=== PATIENT | female | born 1990 | race Caucasian/White ===

== ENCOUNTER 2023-01-09 03:30 | Emergency (ER) | payer MEDICAID ==
[~2023-01-09] VITALS: Ht 162.6 cm; Wt 81.6 kg
--- NOTE | 2023-01-09 03:30 | NUR ---
PT BIB [facility], PREBOOK. TAKEN ER CHAIR
[2023-01-09 03:39] VITALS: BP 106/75
--- NOTE | 2023-01-09 03:39 | NUR ---
Dr. Modi examining patient.
[2023-01-09 03:40] VITALS: BP 106/75
[2023-01-09] MEDS ORDERED: ACETAMINOPHEN 325 MG TAB PO ONE (03:50)
[2023-01-09] MEDS ORDERED: IBUP-1842 PO (04:44)
--- NOTE | 2023-01-09 04:47 | NUR ---
Patient discharged with v/s stable. Written and verbal after care instructions given and explained. Patient verbalized understanding. Police with in custody. All questions addressed prior to discharge. Advised to follow up with PMD.
== END 2023-01-09 04:47 ==
LOC: MED 03:30
DX: M54.2 Cervicalgia (principal); F10.10 Alcohol abuse, uncomplicated; V89.2XXA Person injured in unspecified motor-vehicle accident, traffic, initial encounter; Y93.89 Activity, other specified; Y92.488 Other paved roadways as the place of occurrence of the external cause; Y99.8 Other external cause status
CPT/HCPCS: 81025; 99283